=== PATIENT | male | born 1980 | race Caucasian/White ===

== ENCOUNTER 2017-06-13 02:05 | Emergency (ER) | payer SELFPAY ==
[2017-06-13 02:06] VITALS: BMI 27.9
[2017-06-13 03:22] VITALS: RESP 20; TEMP 98
[2017-06-13] MEDS ORDERED: Oxycodone/Acetaminophen 5/325 mg Tab PO STA (03:31)
[2017-06-13] MEDS ORDERED: Oxycodone/Acetaminophen 5/325 mg Tab ONE (03:45)
--- NOTE | 2017-06-13 04:27 | C.PDOC ---
History Of Present Illness 37 year old male who presents to the ER with a complaint of a tooth ache for more than a week. Patient states he has no insurance and has not been able to see a dentist. Denies fever, bleeding gums, or discharge. Time Seen by Provider: 06/13/17 03:30 Chief Complaint (Nursing): Dental Pain History Per: Patient History/Exam Limitations: no limitations Onset/Duration Of Symptoms: Days Current Symptoms Are (Timing): Still Present Quality: Positive for: Aching Recent travel outside of the [place]: No Past Medical History Reviewed: Historical Data, Nursing Documentation, Vital Signs Vital Signs: Last Vital Signs Temp 98 F 06/13/17 03:08 Pulse 65 06/13/17 04:44 Resp 20 06/13/17 03:08 BP 120/62 06/13/17 04:44 Pulse Ox 97 06/13/17 06:37 - Medical History PMH: HTN Surgical History: No Surg Hx - [facility] Procedures OTHER SKIN & SUBQ I D (05/12/13) Family History: States: Unknown Family Hx - Social History Hx Alcohol Use: No Hx Substance Use: Yes (Marijuana) - Immunization History Hx Tetanus Toxoid Vaccination: No Hx Influenza Vaccination: No Hx Pneumococcal Vaccination: No Review Of Systems Constitutional: Negative for: Fever ENT: Positive for: Mouth Pain Physical Exam - Physical Exam Appears: Non-toxic, No Acute Distress Skin: Normal Color, Warm, Dry Head: Atraumatic, Normacephalic Oral Mucosa: Moist Tongue: Normal Appearing Lips: Normal Appearing Teeth: Other (poor dentition, almost all crowns are destroyed with caries, roots exposed, no gum swelling) Gingiva: Normal Appearing, No Erythema, No Swelling Neurological/Psych: Oriented x3, Normal Speech, Normal Cognition ED Course And Treatment O2 Sat by Pulse Oximetry: 97 (Room air) Pulse Ox Interpretation: Normal Progress Note: Penicillin and percocet administered. On reevaluation, patient's pain has improved and he is able to tolerate PO in the ER. Patient was advised to follow up with dentist and discharged home. Disposition - Disposition Referrals: [facility] [Outside] Disposition: HOME/ ROUTINE Disposition Time: 04:24 Condition: STABLE Additional Instructions: Follow up with Dentist CHAYA. Return to ED if feel worse. Prescriptions: Ibuprofen [Motrin Tab] 600 mg PO Q8 #30 tab Penicillin VK [Pen-Vee K] 500 mg PO Q6 #28 tab Acetaminophen with Codeine [Tylenol with Codeine #3 Tablet] 1 - 2 tab PO .Q4-6H #30 tablet Instructions: Dental Caries (ED) - Clinical Impression Clinical Impression: Dental caries - Scribe Statement The provider has reviewed the documentation as recorded by the Scribe Fuentes Rubio All medical record entries made by the Scribe were at my direction and personally dictated by me. I have reviewed the chart and agree that the record accurately reflects my personal performance of the history, physical exam, medical decision making, and the department course for this patient. I have also personally directed, reviewed, and agree with the discharge instructions and disposition.
[2017-06-13 04:46] VITALS: BP 120/62; PULSE 65
[2017-06-13 05:59] VITALS: O2SAT 97
== END 2017-06-13 04:43 | disposition home or self-care (01) ==
LOC: C.ER 02:05
DX: K02.9 Dental caries, unspecified (principal)

== ENCOUNTER 2018-03-20 05:31 | Emergency (ER) | payer SELFPAY ==
[2018-03-20 05:31] VITALS: BMI 27.9
[2018-03-20] MEDS ORDERED: Sodium Chloride 0.9% 1,000 ML IV ONE (05:51)
--- NOTE | 2018-03-20 05:52 | C.PDOC ---
History Of Present Illness 37 year old male presents to the ED complaining of epigastric pain for the past 24 hours. Patient is homeless and denies any use of drugs or alcohol. Patient states he vomited one or twice yesterday. Denies any epigastric pain in the past and fever. Patient is not currently taking any medication. Time Seen by Provider: 03/20/18 05:50 Chief Complaint (Nursing): Abdominal Pain History Per: Patient History/Exam Limitations: no limitations Onset/Duration Of Symptoms: Hrs (x24) Current Symptoms Are (Timing): Still Present Location Of Pain/Discomfort: Epigastric Past Medical History Reviewed: Historical Data, Nursing Documentation, Vital Signs Vital Signs: Last Vital Signs Temp 97.5 F L 03/20/18 06:58 Pulse 70 03/20/18 06:58 Resp 14 03/20/18 06:58 BP 120/70 03/20/18 06:58 Pulse Ox 99 03/20/18 06:58 - Medical History PMH: HTN Surgical History: No Surg Hx - [facility] Procedures OTHER SKIN & SUBQ I D (05/12/13) Family History: States: Unknown Family Hx - Social History Hx Alcohol Use: No Hx Substance Use: Yes (Marijuana) - Immunization History Hx Tetanus Toxoid Vaccination: No Hx Influenza Vaccination: No Hx Pneumococcal Vaccination: No Review Of Systems Except As Marked, All Systems Reviewed And Found Negative. Gastrointestinal: Positive for: Vomiting (once or twice), Abdominal Pain ( epigastric pain ) Physical Exam - Physical Exam Appears: No Acute Distress, Unkempt Eye(s): bilateral: Normal Inspection Ear(s): Bilateral: Normal Nose: Normal Throat: Normal Neck: Supple Cardiovascular: Rhythm Regular Respiratory: Decreased Breath Sounds Gastrointestinal/Abdominal: Normal Exam, Bowel Sounds, Tenderness (mild to moderate epigastric discomfort on palpation. (-) McBurney's Point. ), No Guarding, No Rebound Extremity: Normal ROM (x4) Neurological/Psych: Normal Sensation, Other (alert ) ED Course And Treatment - Laboratory Results Result Diagrams: 03/20/18 06:17 03/20/18 06:17 O2 Sat by Pulse Oximetry: 100 (RA) Pulse Ox Interpretation: Normal Medical Decision Making Medical Decision Making: Initial Impression: Gastroenteritis, GERD Time: 0551 Plan: -- Cervical Sprin w/o contrast -- Head w/o contrast -- Alcohol Serum -- CMP -- Urine Drug Screen -- Lipase -- Lidocaine 3% 1.5 ml PO -- Maalox 300 ml -- CBC with differentials -- Sodium chloride 1000 mls/hr Time: 635 -- Re-Eval: Patient is feeling much better after GI cocktail and still awaiting lab work. Disposition - Disposition Referrals: [facility] [Outside] Disposition: HOME/ ROUTINE Disposition Time: 19:02 Condition: FAIR Prescriptions: Famotidine [Pepcid] 40 mg PO DAILY #14 tab Instructions: Gastritis, [place] Diet Forms: [employer] (Luxembourgish) Print Language: ESTONIAN - Clinical Impression Clinical Impression: Abdominal pain, Gastritis
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
[2018-03-20] MEDS ORDERED: Alum-Mag Hydrox-Simethicone Susp (30 mL) PO STA (06:08)
[2018-03-20] MEDS ORDERED: Aluminum Hydroxide/Magnesium Hydroxide Susp (30 mL) ONE (06:19)
[2018-03-20] MEDS ORDERED: Sodium Chloride 0.9% 1,000 ML ONE (06:19)
[2018-03-20 06:23] LABS: BASO % 0.4 % (0.0-2.0); EOS # 0.1 K/uL (0.0-0.7); EOS % 0.7 % (0.0-4.0); HEMOGLOBIN 15.8 g/dL (12.0-18.0); LYMPH # 1.5 K/uL (1.0-4.3); LYMPH % 13.2 % (20.0-40.0); MEAN CELL VOLUME 89.7 fL (80.0-94.0); MEAN CORPUSCULAR HEMOGLOBIN 30.8 pg (27.0-31.0); MEAN CORPUSCULAR HGB CONC 34.4 g/dL (33.0-37.0); MEAN PLATELET VOLUME 8.7 fL (7.2-11.7); MONO # 0.6 K/uL (0.0-0.8); MONO % 5.6 % (0.0-10.0); NEUT % 80.1 % (50.0-75.0); NRBC % 0.1 % (0.0-2.0); RBC 5.13 Mil/uL (4.40-5.90); RED CELL DISTRIBUTION WIDTH 13.3 % (11.5-14.5); WHITE BLOOD COUNT 11.3 K/uL (4.8-10.8)
[2018-03-20 06:40] LABS: ALB/GLOB RATIO 1.2 (1.0-2.1); ALT/SGPT 18 U/L (21-72); AST/SGOT 25 U/L (17-59); BLOOD UREA NITROGEN 12 mg/dL (9-20); CALCIUM 8.8 mg/dl (8.6-10.4); GFR AFRICAN-AMERICAN > 60; GFR NON-AFRICAN AMERICAN > 60; LIPASE 116 U/L (23-300)
[2018-03-20 06:59] VITALS: BP 120/70; PULSE 70; RESP 14; TEMP 97.5
[2018-03-20 19:03] VITALS: O2SAT 100
== END 2018-03-20 06:59 | disposition home or self-care (01) ==
LOC: C.ER 05:31
DX: K29.70 Gastritis, unspecified, without bleeding (principal); R10.13 Epigastric pain
CPT/HCPCS: 80053; 83690; 85025; 99283; G0480; J7040